=== PATIENT | male | born 1985 | race Caucasian/White ===

== ENCOUNTER 2017-03-12 01:25 | Observation (INO) | payer BC ==
[2017-03-12] VITALS (13 sets, daily range): BP systolic 105–129; BP diastolic 56–89; PULSE 89–115; TEMP 97.8–99.8
[~2017-03-12] VITALS: Ht 185.4 cm; Wt 88.6 kg
[~2017-03-12 01:25] MED LIST: ATIVAN 0.50.5 MG/TAB PO; BUSPAR5 MG PO; DOXYCYCLINE 10100 MG PO; NO HOME MEDICATIONS
[2017-03-12] MEDS ORDERED: K-DUR 10 MEQ T10 MEQ PO (02:17)
[2017-03-12] MEDS ORDERED: MIDAMOR 5MG TAB5 MG PO (02:18)
[2017-03-12] MEDS ORDERED: MAGNESIUM COMPLEX PO (02:22)
[2017-03-12] MEDS ORDERED: BUSPAR DIVIDOSE15 MG PO (02:23)
[2017-03-13 03:15] VITALS: BP 133/78; PULSE 74; TEMP 98.2
[2017-03-13 05:51] VITALS: BP 112/63; PULSE 71; TEMP 97.6
[2017-03-13 09:38] VITALS: BP 131/7; BP 131/77; PULSE 65; TEMP 97.8
== END 2017-03-13 11:20 | disposition home or self-care (01) ==
LOC: SDCO 01:25 → SURG 01:25 → SDCO 01:46 → SURG 03-13 11:20
DX: K35.80 Unspecified acute appendicitis (principal); E83.42 Hypomagnesemia; E87.6 Hypokalemia
CPT/HCPCS: G0378; J0330; J0694; J0696; J1100; J1940; J2250; J2405; J2550; J2704; J2710; J3010; J3480; J7120